=== PATIENT | male | born 1980 | race Caucasian/White ===

== ENCOUNTER 2017-06-14 21:30 | Emergency (ER) | payer OTHER ==
[~2017-06-14] VITALS: Ht 182.9 cm; Wt 93.0 kg
[2017-06-14 21:56] LABS: HEMATOCRIT 47.8 % (39.2-51.8); HEMOGLOBIN 16.7 g/dL (13.7-18.0); WHITE BLOOD COUNT 7.7 x10^3/uL (3.4-10)
[2017-06-14] MEDS ORDERED: ASPIRIN 81 MG TABLET CHEW ONE (21:58)
[2017-06-14] MEDS ORDERED: PLEASE ENTER HEIGHT AND WEIGHT MC SCH (22:00)
[2017-06-14] MEDS ORDERED: ASPIRIN 81 MG TABLET CHEW PO ONE (22:00)
[2017-06-14 22:05] LABS: BLOOD UREA NITROGEN 20 mg/dL (7-18)
[2017-06-14 22:11] LABS: IS PT STATUS REG ER OR PRE ER? YES
[2017-06-14 23:29] VITALS: BP 154/99
== END 2017-06-14 23:31 | disposition home or self-care (01) ==
LOC: ED 22:21
DX: R07.89 Other chest pain (principal); Z79.82 Long term (current) use of aspirin
CPT/HCPCS: 36415; 71010; 80048; 82040; 84484; 85025; 93005; 99285